=== PATIENT | male | born 1945 | race African-American/Black ===

== ENCOUNTER 2018-06-10 18:58 | Inpatient (IN) | payer MEDICARE, MEDICAID ==
[~2018-06-10] VITALS: Ht 180.3 cm; Wt 98.2 kg
--- NOTE | ~2018-06-10 | DS ---
PATIENT:WINIFRED YU :49 MEDICAL RECORD: [id number] DISCHARGE SUMMARY ADMISSION DATE: 06/10/18 DISCHARGE DATE: 06/16/18 HOSPITAL COURSE: Mr. Yu is a 72-year-old -British male from [facility] who over the course of the last 6 months has had his lithium decreased on pharmacy recommendation. He became, in the weeks leading up to admission, gradually more agitated. They reinstated the lithium and had, by report, given him a few doses of Haldol as well. During his stay here, he was initially agitated the first 24 hours, but after which he became more compliant, less aggressive. He always seemed to need help with feeding, and on the day of discharge the patient had become very rigid. He would not eat and seemed to in particular have a stiff neck. I discussed the case with Dr. Mccarthy, and after her consulting neurology, despite the fact that the patient is not on a regular antipsychotic, the case for neuroleptic malignant syndrome was made. He had a slight fever. He does have rigidity, although not lead pipe and had an elevated CPK that was not consistent with heart disease. Decision was made to transfer the patient for ICU with a rule out of possible neuroleptic malignant syndrome. ASSESSMENT: Major neurocognitive disorder with behavioral disturbances, Alzheimer's type, bipolar affective disorder, manic phase, resolved, communication disorder, dysarthria and rule out neuroleptic malignant syndrome. PLAN: Transfer to the ER. His meds, except for metoprolol and clonidine, will be discontinued in order to address the diagnosis of neuroleptic malignant syndrome. Case discussed with nursing. Chart was reviewed and the patient interviewed and examined. TRANSINT:[id number] Voice Confirmation ID: [id number] DOCUMENT ID: [id number] ERNIE ADAM MD CC: [id number] DICTATION DATE: 06/11/18 1250 TRAINING ENGINEER: 06/12/18 0629 DIS IN 06/16/[id number] [place] [address]
--- NOTE | ~2018-06-10 | CN ---
PATIENT NAME:WINIFRED YU MEDICAL RECORD: [id number] : 49 LOCATION:[id number] ADMIT DATE: 06/10/18 ACCOUNT: [id number] CONSULTING PHYSICIAN: JAMEEL SOLANO MD REFERRING PHYSICIAN: TAMRA MCKEON MD DATE OF CONSULTATION: 06/11/2018 CONSULT REQUESTING PHYSICIAN: Tamra Mckeon MD REASON FOR CONSULTATION: Critical care management, questionable neuroleptic syndrome, hypernatremia, and hypokalemia. HISTORY OF PRESENT ILLNESS: Mr. Yu is a 72-year-old gentleman who is a [facility] resident, recently they were playing with his lithium and the patient was brought into the hospital with mental status changes. He also got p.o. Haldol and the patient was admitted to the ICU, possible neuroleptic syndrome and serotonin withdrawal syndrome. Now, the patient is lying comfortably. He is not in acute distress. The patient is awake and alert, but he is not communicative. REVIEW OF SYSTEMS: The detail is not obtainable as in history of present illness. PAST MEDICAL HISTORY: 1. Dementia. 2. Dysphagia. 3. Hyperlipidemia. 4. Gait abnormality. 5. Bipolar disorder. 6. Schizophrenia. ALLERGIES: No known drug allergy. MEDICATIONS: He is on lithium, hydrocodone, oxybutynin, Pravachol. PERSONAL AND SOCIAL HISTORY: The smoking history unknown. FAMILY HISTORY: Unknown. PHYSICAL EXAMINATION: GENERAL: Now, the patient is lying comfortably in bed. He is not in acute distress. VITAL SIGNS: The blood pressure is 133-151 by 96. Temperature 98.1. The T-max is 99, SpO2 is 96% on room air. Heart rate is 84-106. HEENT: Conjunctivae are pink. Sclerae are not icteric. NECK: Supple, no JVD. CHEST: The chest excursion is minimal on both sides. There is no wheeze, no rales. HEART: Rhythm regular, normal sound, no murmur. ABDOMEN: Soft, bowel sounds present. No hepatosplenomegaly. RECTAL: Deferred. EXTREMITIES: No cyanosis, no clubbing, no pedal edema. CENTRAL NERVOUS SYSTEM: The patient is awake, but he is noncommunicative. There is no muscle rigidity. CONSULT REPORT [id number] WINIFRED YU LABORATORY DATA: CBC: The WBC is 9.9, hemoglobin 13.2, hematocrit 42.3, the platelet count 115. Chemistry: Sodium 148, potassium 3.1, BUN is 18, creatinine 0.8. Glucose 132. Liver enzymes within normal range. Albumin is 3.3. Chest radiograph was clear. IMPRESSION: 1. Mental status changes. It would be less likely a neuroleptic syndrome without muscle rigidity without a fever. 2. Hypernatremia, possible dehydration. 3. Hypokalemia. 4. Hypertension. 5. Bipolar affective disorder with schizophrenia. RECOMMENDATION: 1. Continue with the IV fluid. 2. Check the CPK, lactic acid level, LDH. FOLLOWUP: 1. Follow up the vital signs and fever. 2. I will consult psych. 3. Follow up labs and chest radiograph. Dr. Mckeon, thank you for involving me in the care of Mr. Yu. TRANSINT:[id number] Voice Confirmation ID: [id number] DOCUMENT ID: [id number] JAMEEL SOLANO MD CC: [id number] DICTATION DATE: 06/11/18 1203 DIGITAL RESEARCH ANALYST: 06/11/18 1303 ADM IN [facility] [address] [id number]
[~2018-06-10 18:58] MED LIST: HYDROCODON-ACE1 EA10 PO; LITHIUM CARBON150 MG PO; METAMUCIL PACKE1 PKT PO; OXYBUTYNIN CHLOR5 M1 PO; PRAVACHOL20 MG
[2018-06-10 20:00] VITALS: BP 111/97
--- NOTE | 2018-06-10 20:00 | NUR ---
RECEIVED PT TO ICU ROOM 2304 FROM [facility] TRANSFERRED TO ICU BED PT EYES OPEN HE IS NONVERBAL DOES NOT FOLLOW COMMANDS DOES WITHDRAW FROM PAIN. DOYLE PLACED ON CM ALARMS ON AND AUDIBLE READING SR-ST WITHOUT ECTOPY PT IS HYPERTENSIVE PER REPORT. NO IV ACCESS PER REPORT ATTEMPTS MADE NOT SUCCESSFUL. RESP EVEN AND NONLABORED BREATH SOUNDS CLEAR ON ROOM AIR WITH O2 SATS 99%. SKIN WARM AND DRY INTACT. PT DOES HAVE TRACE EDEMA TO BLE. PPP. PT HAS ADULT DIAPER ON SATURATED WITH DARK URINE PLACED RENE. BED LOW POSITION WITH SIDE RAILS UP TIMES 3. CALL LIGHT IN REACH.
--- NOTE | 2018-06-10 20:15 | NUR ---
PLACING ARM BAND ON PT AND HE APPEARS TO FOLLOW NURSE WITH EYES. WHEN ASKED IF HE KNEW WHERE HE WAS HE NODDED HEAD NO, REORIENTED PT DID FOLLOW COMMANDS WHERE HE DID NOT PREVIOUSLY
--- NOTE | 2018-06-10 20:45 | NUR ---
CALLED DR MCKEON INFORMED PT ARRIVED TO UNIT INFORMED THAT HE WAS NONVERBAL AND DID NOT FOLLOW COMMANDS BUT WITHIN 40 MINUTES DID NOD HEAD APPROPRIATELY AND FOLLOWED COMMANDS WELL SAID NO WHEN ASKED IF HE WAS ALLERGIC TO ANYTHING. HE DID ALSO JUST VERBALIZE HIS BIRTHDATE CORRECTLY. SHE ORDERED CT OF HEAD
[2018-06-10 21:00] VITALS: BP 156/106
[2018-06-10 22:00] VITALS: BP 163/103
--- NOTE | 2018-06-10 22:00 | NUR ---
20 GUAGE PIV TO LEFT FOREARM PER STEVEN MONTANEZ
--- NOTE | 2018-06-10 22:36 | NUR ---
PT TRANSPORTED TO CT FOR CT OF HEAD VIA BED WITH NURSE AND GROUP DIRECTOR.
--- NOTE | 2018-06-10 22:48 | NUR ---
BACK FROM CT TOLERATED WELL
[2018-06-10 23:00] VITALS: BP 163/103
[2018-06-10 23:24] VITALS: BP 118/96
[2018-06-11] VITALS (22 sets, daily range): BP systolic 133–182; BP diastolic 83–110; Ht 180.3 cm; Wt 98.2 kg
--- NOTE | 2018-06-11 01:00 | NUR ---
PT HAD SMALL SEMISOFT BROWN STOOL PARTIAL BED BATH AND LINEN CHANGE DONE SKIN INTACT
--- NOTE | 2018-06-11 03:00 | NUR ---
REASSESSMENT MADE PT RESTING QUIETLY WITH EYES CLOSED AWAKENS EASILY TO VERBAL STIMULI FOLLOWS COMMANDS LEFT SIDED WEAKNESS NOTED. NO DISTRESS NOTED VSS AT THIS TIME
[2018-06-11 06:16] LABS: ALBUMIN 3.3 g/dL (3.4-5.0); ALKALINE PHOSPHATASE 57 U/L (46-116); BILIRUBIN - TOTAL 0.94 mg/dL (0.2-1.3); CALC OSMOLALITY 297 mosm/kg (275-300); CALCIUM 8.9 mg/dL (8.5-10.1); CARBON DIOXIDE 26.6 mmol/L (21.0-32.0); CHLORIDE - SERUM 109 mmol/L (98-107); GLUCOSE 132 mg/dL (74-106); POTASSIUM - SERUM 3.1 mmol/L (3.5-5.1); PROTEIN - SERUM 6.9 g/dL (6.4-8.2); SODIUM 148 mmol/L (136-145); UREA NITROGEN 18 mg/dL (7-18)
[2018-06-11 06:18] LABS: ALT (SGPT) 39 U/L (10-68); CREATININE - SERUM 0.8 mg/dL (0.6-1.3); eGFR NON AFRICAN AMERICAN > 90 mL/min (90-120)
--- NOTE | 2018-06-11 07:00 | NUR ---
RECEIVED PATIENT FROM NURSE. DURING ASSESSMENT PATIENT FOLLOWED ME WITH EYES BUT WOULD NOT VERBALLY RESPOND TO ANY QUESTIONS. ONLY COMMAND FOLLOWED WAS TO RAISING ARMS. ABLE TO PASSIVELY BEND ARMS AND LEGS AT JOINTS BUT PATIENT DOES SEEM RIGID OTHERWISE IN THAT HE HE TRIES TO RESIST BENDING AT JOINTS. ABLE PUSH LEGS AND FEET AGAINST MY HANDS ONLY IN EFFORT TO RESIST, NOT BY COMMAND. PUPILS EQUAL AND REACTIVE. LUNG FIEDLS CLEAR, VSS. ABDOMEN VERY DISTENDED AND BOWEL SOUNDS HYPOACTIVE.
[2018-06-11 07:37] LABS: BASOPHILS 0.1 % (0-2); EOSINOPHILS 0.8 % (0-7); HEMATOCRIT 42.3 % (42.0-54.0); HEMOGLOBIN 13.2 g/dL (13.5-17.5); IMMATURE GRANULOCYTES 0.1 % (0-5); LYMPHOCYTES 21.1 % (15-50); MCH 28.4 pg (26.0-34.0); MCHC 31.2 g/dL (31.0-37.0); MEAN PLATELET VOLUME 10.9 fL (7.4-10.4); MONOCYTES 9.6 % (2-11); NEUTROPHILS 68.3 % (40-80); PLATELET COUNT 115 10x3/uL (130-400); RBC 4.65 10x6/uL (4.20-6.10); RDW 14.3 % (11.5-14.5); WBC 9.9 10x3/uL (4.8-10.8)
--- NOTE | 2018-06-11 09:30 | NUR ---
CALLED DR. MCKEON BACK ABOUT CT OF HEAD ORDER SINCE IT WAS DONE LAST NIGHT. HARD COPY RESULTS IN CHART FOR SOME REASON... READ BACK RESULTS. OKAY TO CANCEL NEW ORDER.
--- NOTE | 2018-06-11 11:33 | NUR ---
PT RESTING IN BED WITH STABLE VS. NO COMPLAINTS
--- NOTE | 2018-06-11 12:58 | NUR ---
PLACED RENE. CHANGED ALL PATIENT LINENS AND GAVE BED BATH. HAD SMALL LOOSE BM
--- NOTE | 2018-06-11 13:07 | NUR ---
FAXED CONSULT FOR DR. ADAM DOWN TO ASSISTED AND PLACED VERIFICATION RECEIPT IN CHART
--- NOTE | 2018-06-11 14:26 | NUR ---
CHANGED DRESSING TO LEFT LEG VENOUS STASIS ULCER ACCORDING TO ORDERS. WOUND HAS ONLY SMALL SKIN TEAR OPENING AND HARDLY DRAINING. SKIN IS MOTTLED AND BRUISED. APPLIED SCD'S, FLOATED HEELS, AND TURNED TO RIGHT SIDE. FAMILY IN ROOM
[2018-06-11 14:48] LABS: LDH 267 U/L (85-227)
[2018-06-11 14:50] LABS: CREATINE KINASE 415 UL (21-232)
--- NOTE | 2018-06-11 15:00 | NUR ---
DR. ADAM CAME BY TO EVALUATE PATIENT. WANTS TO LEAVE IN ICU TILL NMP SYMPTOMS SUBSIDE. NO ORDERS GIVEN
[2018-06-11 15:13] LABS: CKMB 2.4 U/L (0.0-3.6)
--- NOTE | 2018-06-11 19:00 | NUR ---
ASSESSMENT COMPLETE PT ALERT FOLLOWS COMMANDS LEFT SIDED WEAKNESS FROM PREVIOUS STROKE. DENIES PAIN STATES YES WHEN ASKED IF HE NEEDED TO CHANGE POSITION IN BED FOR COMFORT. USING WEDGE PILLOWS PT ABLE TO ASSIST MINIMALLY WITH REPOSITIONING WHILE TURNING TO ASSESS BOTTOM NOTICED PT HAD MODERATE SIZE SEMISOFT LIGHT BROWN STOOL COMPLETE LINEN CHANGE AND PARTIAL BED BATH. SKIN INTACT RESP EVEN NONLABORED O2 SAT 98%ON ROOM AIR BREATH SOUNDS CLEAR. CM ALARMS ON AND AUDIBLE PT IN SR NO ECTOPY. SKIN WARM AND DRY PPP. ABD SOFT NONTENDER.
--- NOTE | 2018-06-11 23:00 | NUR ---
REASSESSMENT MADE PT DENIES PAIN REPOSITIONED FOR COMFORT. VSS AT THIS TIME
[2018-06-12] VITALS (24 sets, daily range): BP systolic 132–180; BP diastolic 79–116
--- NOTE | 2018-06-12 01:48 | NUR ---
B/P ELEVATED MEDICATED WITH LOPRESSOR IV PER PRN ORDER
--- NOTE | 2018-06-12 02:32 | NUR ---
NOTICED PT TIGHTLY HOLDING HANDS IN FISTS AND ARMS STRAIGHT. PT IS TALKING AND STATES HIS NAME JUST A LITTLE CONFUSED ABOUT TIME. ATIVAN 1 MG GIVEN SIVP PER PRN ORDER FOR NEUROLEPTIC MALIGNANT SYMPTOMS SUCH THE RIGIDITY.
--- NOTE | 2018-06-12 03:00 | NUR ---
REASSESSMENT MADE PT RESTING QUIETLY AND MUSCLES RELAXED FROM ATIVAN GIVEN PRN AND BLOOD PRESSURE HAS COME DOWN SOME WITH PRN LOPRESSOR.
--- NOTE | 2018-06-12 07:00 | NUR ---
SHIFT ASSESSMENT COMPLETED. PT CARE ASSUMED, MONITORS ON AND WORKING, VITALS STABLE, NO SIGNS/SYMPTOMS OF PAIN OR DISCOMFORT NOTED. SEE FLOW SHEET FOR FURTHER DETAILS. WILL CONTINUE TO OBSERVE.
--- NOTE | 2018-06-12 07:07 | NUR ---
LAB HAS NOT BEEN ABLE TO GET BLOOD FOR AM LABS PT IS A DIFFICULT STICK. ANOTHER EXPEDITER SERVICE ORDER COMING TO ATTEMPT SHORTLY
[2018-06-12 08:15] LABS: ALBUMIN 2.8 g/dL (3.4-5.0); ALKALINE PHOSPHATASE 61 U/L (46-116); ALT (SGPT) 30 U/L (10-68); BILIRUBIN - TOTAL 0.72 mg/dL (0.2-1.3); CALC OSMOLALITY 285 mosm/kg (275-300); CALCIUM 8.4 mg/dL (8.5-10.1); CARBON DIOXIDE 27.7 mmol/L (21.0-32.0); CHLORIDE - SERUM 109 mmol/L (98-107); CREATININE - SERUM 0.9 mg/dL (0.6-1.3); GLUCOSE 115 mg/dL (74-106); PROTEIN - SERUM 6.5 g/dL (6.4-8.2); SODIUM 144 mmol/L (136-145); eGFR NON AFRICAN AMERICAN 89 mL/min (90-120)
[2018-06-12 08:22] LABS: UREA NITROGEN 8 mg/dL (7-18)
[2018-06-12 08:24] LABS: HEMATOCRIT 38.6 % (42.0-54.0); HEMOGLOBIN 12.3 g/dL (13.5-17.5); MCH 28.5 pg (26.0-34.0); MCV 89.4 fL (80.0-100.0); RBC 4.32 10x6/uL (4.20-6.10); WBC 7.9 10x3/uL (4.8-10.8)
[2018-06-12 08:25] LABS: LYMPHOCYTES 34.9 % (15-50); MCHC 31.9 g/dL (31.0-37.0); MEAN PLATELET VOLUME 10.5 fL (7.4-10.4); MONOCYTES 8.1 % (2-11); NEUTROPHILS 54.6 % (40-80); PLATELET COUNT 113 10x3/uL (130-400); RDW 13.7 % (11.5-14.5)
[2018-06-12 08:26] LABS: BASOPHILS 0.1 % (0-2); IMMATURE GRANULOCYTES 0.3 % (0-5)
--- NOTE | 2018-06-12 09:00 | NUR ---
REPORT RECEIVED FROM HAYLEY MONTANEZ PATIENT AWAKES EASILY, BUT NOT MAKE SENSE TALKING. CONFUSED REORIENTED WAS NOT EFFECTIVE. IV LEFT FOREARM WITHOUT REDNESS OR SWELLING. D51/4 NS AT 100 ML HOUR. VOIDING CLEAR YELLOW URINE. MOD SIZE BROWN FORMED STOOL
--- NOTE | 2018-06-12 10:00 | NUR ---
LOPRESSOR GIVEN FOR HEART RATE 120 WITH ELEVATED BLOOD PRESSURE. MEDS EFFECTIVE HEART RATE DOWN TO 86
--- NOTE | 2018-06-12 11:07 | NUR ---
LARGE BROWN STOOL, SHENA LIKE CONSISTENCE. PERINEAL CARE DONE AND RENE CATH CARE DONE.KCL RIDERS INFUSING. REPOSITIONED TOLERATED WELL. STILL CONFUSED. SEEING GREEN EYES
--- NOTE | 2018-06-12 13:30 | NUR ---
DR. DEL REAL HERE UPDATE GIVEN, DIET ORDERED.
--- NOTE | 2018-06-12 15:17 | NUR ---
REPOSITIONED ON RIGHT SIDE, ASKED PATIENT TO TURN HIMSELF HE TRIES TO MOVE THAT WAY BUT DOES NOT MAKE IT. HAD TO TO BE TURNED TO HIS SIDE. IN GOOD MOOD, TALKING CONSTANTLY REPEATS WHAT NURSE SAYS, THEN TALKS ABOUT VARIOUS SUBJECTS. RENE CATH PATENT. IV LEFT FOREARM WITHOUT REDNESS OR SWELLING. MONITOR SR. MOVES ALL EXTEMITIES,NO DISTRESS.
--- NOTE | 2018-06-12 16:04 | NUR ---
LOPRESSOR GIVEN FOR SYS BP GREATER THAN 180 SLOWLY. PATIENT SINGING HYMNS SPEECH STILL CLEAR, JUST CONTINOUSLY TALKING ABOUT SOMETHING IN MY POCKET, CUTTING BRACELETS OFF, ASKED HIM TO WAIT UNTIL TOMORROW, STATES OK.
--- NOTE | 2018-06-12 18:32 | NUR ---
PATIENT OVERLY EXCITED ABOUT TV. ATIVAN 1 MG IV GIVEN. 40 MEQ PO POTASSIUM GIVEN FOR SERUM POTASSIUM OF 3.4. MEDS CRUSHED AND PUT IN VANILLA PUDDING. TAKING PO SLOWLY WITHOUT CHOKING. ONLY TAKE VERY SMALL BITES. RENE CATH PATENT DRAINING CLEAR JERMAN URINE. IV LEFT FOREARM WITHOUT REDNESS OR SWELLING. INFUSING WITH D51/4NS AT 100 ML HOUR. TALKING REPEATING ALOT OF WHAT THE TV IS SAY, ABLE TO READ WHAT CHANNEL THE TV IS ON. HEART RATE AND BLOOD PRESSURE IS UP, PATIENT VERY EXCITED ABOUT TV.
--- NOTE | 2018-06-12 19:00 | NUR ---
PT SITTING UP IN BED WATHCING TV ALERT. SMILES AND FOLLOWS COMMANDS. ABLE TO STATE HIS NAME AND AND SAYS HE KNOWS WHERE HE IS BUT WILL NOT VERBALIZE JUST SHAKES HEAD AND SMILES. RESP EVEN AND NONLABORED BREATH SOUNDS CLEAR CM ON READING SR ALARMS ON AN AUDIBLE. SKIN W/D PPP TRACE EDEMA TO BLE. LEFT AC PIV WITH IV FLUIDS INFUSING WITHOUT DIFFICULTY. DENIES PAIN OR DISCOMFORT BY SHAKING OF HEAD. BED LOW POSITION CALL LIGHT IN REACH AND EDUCATED ON HOW TO USE CALL LIGHT
[2018-06-13] VITALS (21 sets, daily range): BP systolic 97–198; BP diastolic 71–123
--- NOTE | 2018-06-13 00:25 | NUR ---
PT CONTINUES TO BE HYPERTENSIVE LOPRESSOR GIVEN PER PRN ORDERS PT SITTING UP IN BED BOTH ARMS RIGID WHEN ASKED IF ARMS WERE HURTING HE NODS HEAD YES MEDICATED WITH ATIVAN PRN WHICH MAY ALSO HELP LOWER BP WILL MONITOR
[2018-06-13 03:47] LABS: HEMATOCRIT 38.2 % (42.0-54.0); HEMOGLOBIN 12.1 g/dL (13.5-17.5); MCH 28.7 pg (26.0-34.0); MCHC 31.7 g/dL (31.0-37.0); MCV 90.5 fL (80.0-100.0); MEAN PLATELET VOLUME 11.2 fL (7.4-10.4); PLATELET COUNT 122 10x3/uL (130-400); RBC 4.22 10x6/uL (4.20-6.10); RDW 13.9 % (11.5-14.5); WBC 6.6 10x3/uL (4.8-10.8)
[2018-06-13 04:08] LABS: ALBUMIN 2.7 g/dL (3.4-5.0); ALKALINE PHOSPHATASE 61 U/L (46-116); ALT (SGPT) 36 U/L (10-68); BILIRUBIN - TOTAL 0.58 mg/dL (0.2-1.3); CALC OSMOLALITY 285 mosm/kg (275-300); CALCIUM 8.5 mg/dL (8.5-10.1); CHLORIDE - SERUM 108 mmol/L (98-107); CREATINE KINASE 203 UL (21-232); CREATININE - SERUM 0.9 mg/dL (0.6-1.3); GLUCOSE 111 mg/dL (74-106); POTASSIUM - SERUM 3.3 mmol/L (3.5-5.1); PROTEIN - SERUM 6.6 g/dL (6.4-8.2); SODIUM 144 mmol/L (136-145); UREA NITROGEN 6 mg/dL (7-18); eGFR NON AFRICAN AMERICAN 89 mL/min (90-120)
[2018-06-13 04:29] LABS: LYMPHOCYTES 31 % (15-50); MONOCYTES 11 % (2-11); NEUTROPHILS 58 % (40-80); PLATELET ESTIMATE NORMAL
--- NOTE | 2018-06-13 08:06 | NUR ---
BREAFAST TRAY SERVED AND PT REQUIRES FEEDING. BP 163/106. LOPRESSOR GIVEN. K 3.3 POTASSIUM REPLACEMENT PER ELECTROLYTE PROTOCOL UTILIZED.
--- NOTE | 2018-06-13 08:35 | NUR ---
RESITE IV R WRIST.
--- NOTE | 2018-06-13 09:27 | NUR ---
Nutrition follow-up: Diet just advanced the regular mechanical soft Pt is a feeder due to confusion Labs reviewed Wt: 216# RDN following.
--- NOTE | 2018-06-13 12:36 | NUR ---
BATH AND LINEN CHANGE COMPLETE. PT CHARISMA WELL. PT IS TOTAL CARE. DOES NOT FOLLOW COMMAND BUT INSTEAD TALKS CONTINOUSLY. NO COMBATIVE BEHAVIOR NOTED. CONTINUES TO HAVE WORD SALAD.
--- NOTE | 2018-06-13 13:25 | NUR ---
DR DEL REAL HERE. DISCUSSED PTS HYPERTENTION. LISINOPRIL STARTED AND ATIVAN GIVEN ORDERED FOR RIGIDITY.
--- NOTE | 2018-06-13 17:33 | MORECARE ---
CASE MANAGEMENT DISCHARGE SUMMARY PATIENT: WINIFRED RIVERA UNIT: [id number] ADM DATE: 06/10/18 AGE: 72 : 47 SEX: M ROOM/BED: D.2304 AUTHOR: DAVID YIN PHYSICIAN: REFERRING PHYSICIAN: TANIYA MCKEON MD DATE OF SERVICE: 06/13/18 Discharge Plan Patient Name: WINIFRED RIVERA [facility] [facility] 1945 Planned Disposition: Care Home Facility Anticipated Discharge Date: Discharge Date: Expected LOS: Initial Reviewer: [email or web address] Initial Review Date: 06/13/2018 Generated: 06/13/18 6:33 pm Patient Name: WINIFRED RIVERA Page [phone] at 1733 All edits/amendments must be made on the electronic document DICTATION DATE: 06/13/181731 BABY SITTER: DEVIN 06/13/181731 RPT#: [id number] ND DATE: STATUS: ADM IN [facility] [address] [place] [address] END OF REPORT
--- NOTE | 2018-06-13 17:43 | MORECARE ---
CASE MANAGEMENT DISCHARGE SUMMARY PATIENT: WINIFRED RIVERA UNIT: [id number] ADM DATE: 06/10/18 AGE: 72 : 47 SEX: M ROOM/BED: D.2304 AUTHOR: HUMPHREY,DOC PHYSICIAN: REFERRING PHYSICIAN: TANIYA MCKEON MD DATE OF SERVICE: 06/13/18 Discharge Plan Patient Name: WINIFRED RIVERA Facility: [facility]:[place] : 1945 Planned Disposition: Longterm Facility Anticipated Discharge Date: Discharge Date: Expected LOS: Initial Reviewer: [email or web address] Initial Review Date: 06/13/2018 Generated: 06/13/18 6:43 pm Comments DCP- Discharge Planning Updated by [email or web address]: Karely Carey on 06/13/18 4:[address] Patient Name: WINIFRED RIVERA Admission Status: Elective Accout number: [id number] Admission Date: 06-10-2018 : 1945 Admission Diagnosis: Attending: TANIYA MCKEON Current LOS: 3 Anticipated DC Date: Planned Disposition: Longterm Facility Primary Insurance: [facility] MEDICARE HMO or PPO Discharge Planning Comments: CM met with patient at bedside. Patient is alert and oriented X1 . Patient did state that he plans on returning to [facility] upon discharge. Patient could tell me his sister's name. Sheri Mo [phone]. Patient denies any discharge needs currently. CM will continue to follow and assist as needed with discharge planning / needs. Low Pressure Boiler Operator: Karely Carey DCPIA - Discharge Planning Initial Assessment Updated by [email or web address]: Karely Carey on 06/13/18 5:34 pm * Is the patient Alert and Oriented? No * PCP Shari * Pharmacy [facility] * Preadmission Environment Memory Care * Other Environment Patient was admitted from [facility] inpatient Psych Unit * Facility Name [facility] * ADLs Partial Dependent * Partial ADLs (Assistance needed) Ambulation Bathing Dressing Eating Medication Management Toileting Transfers * List name and contact numbers for known caregivers / representatives who currently or will assist patient after discharge: Sheri Mo - Sister - [phone] * Verbal permission to speak to the caregivers and representatives has been obtained from the patient. Yes * Community resources currently utilized None * Additional services required to return to the preadmission environment? No * Can the patient safely return to the preadmission environment? Yes * Has this patient been hospitalized within the prior 30 days at any hospital? No Last DP export: 06/13/18 4:33 p Patient Name: WINIFRED RIVERA Page [phone] at 1743 All edits/amendments must be made on the electronic document DICTATION DATE: 06/13/181741 KILN STOKER: DEVIN 06/13/181741 RPT#: [id number] DC DATE: STATUS: ADM IN [facility] [address] [place] [address] END OF REPORT
--- NOTE | 2018-06-13 23:53 | NUR ---
PT RESTING COMFORTABLY IN BED WITH NO S/S OF ACUTE DISTRESS, WAKES WITH MINIMAL STIMULI, VSS, REPOSITIONED FOR COMFORT, PT DENIES PAIN AT THIS TIME, WILL CONTINUE TO MONITOR
[2018-06-14 05:01] LABS: BASOPHILS 0.1 % (0-2); EOSINOPHILS 2.3 % (0-7); HEMATOCRIT 37.2 % (42.0-54.0); HEMOGLOBIN 11.5 g/dL (13.5-17.5); IMMATURE GRANULOCYTES 0.1 % (0-5); LYMPHOCYTES 33.2 % (15-50); MCH 27.8 pg (26.0-34.0); MCHC 30.9 g/dL (31.0-37.0); MCV 90.1 fL (80.0-100.0); MEAN PLATELET VOLUME 11.2 fL (7.4-10.4); MONOCYTES 7.7 % (2-11); NEUTROPHILS 56.6 % (40-80); PLATELET COUNT 127 10x3/uL (130-400); RBC 4.13 10x6/uL (4.20-6.10); RDW 13.7 % (11.5-14.5); WBC 6.9 10x3/uL (4.8-10.8)
[2018-06-14 05:34] LABS: ALBUMIN 2.6 g/dL (3.4-5.0); ALKALINE PHOSPHATASE 54 U/L (46-116); ALT (SGPT) 44 U/L (10-68); CALC OSMOLALITY 285 mosm/kg (275-300); CALCIUM 8.3 mg/dL (8.5-10.1); CARBON DIOXIDE 26.7 mmol/L (21.0-32.0); CHLORIDE - SERUM 109 mmol/L (98-107); CREATININE - SERUM 0.8 mg/dL (0.6-1.3); GLUCOSE 114 mg/dL (74-106); POTASSIUM - SERUM 3.3 mmol/L (3.5-5.1); PROTEIN - SERUM 6.2 g/dL (6.4-8.2); SODIUM 144 mmol/L (136-145); UREA NITROGEN 7 mg/dL (7-18); eGFR NON AFRICAN AMERICAN > 90 mL/min (90-120)
--- NOTE | 2018-06-14 06:47 | CN ---
PATIENT NAME:WINIFRED RIVERA MEDICAL RECORD: [id number] : 49 LOCATION:DONGD.[id number] ADMIT DATE: 06/10/18 ACCOUNT: [id number] CONSULTING PHYSICIAN: GEORGE HAND MD REFERRING PHYSICIAN: TANIYA MCKEON MD DATE OF CONSULTATION: 06/13/2018 IDENTIFYING DATA: The patient is 72 years old and known to me from previous clinical contact. CHIEF COMPLAINT: Medication reaction. HISTORY OF PRESENT ILLNESS: Apparently, the patient had some stiffness and increased CPK and fever that was felt to be associated with exposure to a neuroleptic. He was subsequently transferred to ICU. The patient is now afebrile, has normal lab and the stiffness is either resolved or mostly resolved. He continues to be very poorly oriented and at times agitated. ASSESSMENT: 1. Bipolar disorder. 2. Dementia. PLAN: The patient should be returned to the behavioral unit at your convenience. There is a bed shortage right now, but I am willing to accept him whenever internal medicine feels that he is medically stable. I do not see evidence of any condition medically that would prevent him from returning to the behavioral unit and being treated here. I am willing to accept him back whenever he is deemed medically stable. TRANSINT:[id number] Voice Confirmation ID: [id number] DOCUMENT ID: [id number] GEORGE HAND MD at 0647 CC: [id number] DICTATION DATE: 06/13/181810 CLERICAL SECRETARY: 06/13/182031 ADM IN [id number] [place] [address]
[2018-06-14 07:00] VITALS: BP 149/89
--- NOTE | 2018-06-14 08:23 | NUR ---
UP IN BED WATCHING TV AT THIS TIME. OFFERED PT BREAKFAST, HE STATED HE DID NOT WANT ANYTHING. WAS ABLE TO GET PT TO DRINK SOME OF HIS ORANGE JUICE. PT IS A FEEDER WITH MEALS. NO ACUTE DISTRESS NOTED. WILL CONTINUE PLAN OF CARE.
--- NOTE | 2018-06-14 10:22 | NUR ---
UP IN BED WATCHING TV. DENIES ANY NEEDS. WILL CONTINUE PLAN OF CARE.
[2018-06-14 11:00] VITALS: BP 155/102
--- NOTE | 2018-06-14 12:15 | NUR ---
UP IN BED WATCHING TV AT THIS TIME. DENIES ANY NEEDS. PT IS A FEEDER WITH MEALS. TURNED Q2H. ORAL CARE OFFERED Q2H. WILL CONTINUE PLAN OF CARE.
[2018-06-14 15:00] VITALS: BP 146/100
--- NOTE | 2018-06-14 16:06 | NUR ---
BED BATH GIVEN AT THIS TIME. TOTAL LINEN CHANGE AND RENE CARE PROVIDED. NO ACUTE DISTRESS NOTED. WILL CONTINUE PLAN OF CARE.
--- NOTE | 2018-06-14 16:13 | NUR ---
REPORT CALLED TO RECIEVING NURSE FOR PT TO TRANSFER TO ROOM 2220. WILL TRANSFER PT SHORTLY.
--- NOTE | 2018-06-14 16:28 | NUR ---
TRANSFERRED TO ROOM 2220 AT THIS TIME VIA BED ACCOMPANIED BY HOSPITAL STAFF WITH ALL PERSONAL ITEMS. NO ACUTE DISTRESS NOTED. NO FURTHER ACTIONS.
--- NOTE | 2018-06-14 20:00 | NUR ---
ASSESSMENT PER FLOWSHEET. SALINE LOCK PATENT RT FOREARM NO IV FLUIDS ARE HANGING. 1000CC'S NS W/20MEQ KCL HUNG PER ORDERS TO RUN AT 100CC'S/HR. HOB UP FED PATIENT HIS SUPPER WHICH WAS LEFT UNTOUCHED AT BEDSIDE. ATE 85%. MAHESH BED MAT IN USE WITH ALARMS SET RENE TO BEDSIDE DRAINAGE WITH YELLOW URINE.
[2018-06-14 20:54] VITALS: BP 158/99
--- NOTE | 2018-06-14 22:00 | NUR ---
REMAINS AWAKE AND WATCHING TV.
--- NOTE | 2018-06-15 | NUR ---
EYES CLOSED RESPIRATIONS WITH EASE AND UNLABORED. SR UP X2 CALL LIGHT WITHIN REACH.
[2018-06-15 00:54] VITALS: BP 148/98
--- NOTE | 2018-06-15 03:00 | NUR ---
RESTING QUIETLY DENIES NEEDS.
--- NOTE | 2018-06-15 04:48 | NUR ---
EYES CLOSED RESPIRATIONS WITH EASE AND UNLABORED.
[2018-06-15 05:01] VITALS: BP 174/97
[2018-06-15 05:31] LABS: BASOPHILS 0.2 % (0-2); EOSINOPHILS 1.1 % (0-7); HEMOGLOBIN 12.7 g/dL (13.5-17.5); IMMATURE GRANULOCYTES 0.2 % (0-5); LYMPHOCYTES 29.4 % (15-50); MCH 28.5 pg (26.0-34.0); MCHC 31.8 g/dL (31.0-37.0); MCV 89.9 fL (80.0-100.0); MONOCYTES 7.7 % (2-11); NEUTROPHILS 61.4 % (40-80); PLATELET COUNT 140 10x3/uL (130-400); RBC 4.45 10x6/uL (4.20-6.10); RDW 13.6 % (11.5-14.5); WBC 6.5 10x3/uL (4.8-10.8)
[2018-06-15 06:06] LABS: ALBUMIN 2.9 g/dL (3.4-5.0); ALKALINE PHOSPHATASE 65 U/L (46-116); ALT (SGPT) 40 U/L (10-68); CALC OSMOLALITY 283 mosm/kg (275-300); CALCIUM 8.4 mg/dL (8.5-10.1); CARBON DIOXIDE 23.7 mmol/L (21.0-32.0); CHLORIDE - SERUM 109 mmol/L (98-107); CREATININE - SERUM 0.8 mg/dL (0.6-1.3); GLUCOSE 97 mg/dL (74-106); POTASSIUM - SERUM 3.8 mmol/L (3.5-5.1); PROTEIN - SERUM 6.8 g/dL (6.4-8.2); SODIUM 143 mmol/L (136-145); eGFR NON AFRICAN AMERICAN > 90 mL/min (90-120)
--- NOTE | 2018-06-15 06:20 | NUR ---
INC SMEAR STOOL. COMPLETE BED BATH WITH LINENS CHANGED.
[2018-06-15 06:27] LABS: UREA NITROGEN 9 mg/dL (7-18)
[2018-06-15 08:18] VITALS: BP 160/104
[2018-06-15 12:19] VITALS: BP 154/97
--- NOTE | 2018-06-15 13:50 | NUR ---
I have reviewed this patient and I concur with the Shift Assessment completed by the Licensed Practical Nurse today this shift.
--- NOTE | 2018-06-15 15:39 | NUR ---
SPOKE TO DR DEL REAL IN REGARDS TO RENE DORIS WAT[facility], PER DR DEL REAL, PT IS VERY STIFF AND UNABLE TO TO USE URINAL AND IS INCONTIONENT. BIGGEST CONCERN WOULD BE SORES FROM BEING WET TOO LONG AND SKIN BREAKDOWN UNLESS PT CAN BE CHANGED NEEDED, ADVISED WE WOULD DO OUR BEST BUT NOT OFTEN WE COULD, DECISION TO LEAVE IN RENE DUE TO SKIN BREAKDOWN
--- NOTE | 2018-06-15 16:47 | NUR ---
OT NOTE: PT COMPLETED BED MOB WITH MAX A AND EXTENSIVE VERBAL CUES . PT COMPLETED EOB SITTING WITH MAX A. PT COMPLETED SELF FEEDING WITH MAX/TOTAL A. THANK YOU, GLENN HAMMOND
[2018-06-15 17:09] VITALS: BP 142/96
--- NOTE | 2018-06-15 20:00 | NUR ---
ASSESSMENT PER FLOWSHEET. IV PATENT RT FOREARM OF NS W/20MEQ KCL INFUSING AT 100CC'S/HR. RENE TO BEDSIDE DRAINAGE WITH JERMAN COLORED URINE. MAHESH BED ALARM MAT IN USE AND ACTIVATED. SCD'S ON. SR UP X2 CALL LIGHT WITHIN REACH.
[2018-06-15 20:10] VITALS: BP 150/105
--- NOTE | 2018-06-15 21:30 | NUR ---
MEDS GIVEN PER MAR.
--- NOTE | 2018-06-16 | NUR ---
REPOSITIONED IN BED SR UP X2 CALL LIGHT WITHIN REACH.
[2018-06-16 01:01] VITALS: BP 132/87
[2018-06-16 04:45] VITALS: BP 146/89
[2018-06-16 05:21] LABS: BASOPHILS 0.1 % (0-2); EOSINOPHILS 1.5 % (0-7); HEMATOCRIT 37.1 % (42.0-54.0); HEMOGLOBIN 11.8 g/dL (13.5-17.5); IMMATURE GRANULOCYTES 0.3 % (0-5); LYMPHOCYTES 27.1 % (15-50); MCH 28.5 pg (26.0-34.0); MCHC 31.8 g/dL (31.0-37.0); MCV 89.6 fL (80.0-100.0); MEAN PLATELET VOLUME 10.7 fL (7.4-10.4); MONOCYTES 7.7 % (2-11); NEUTROPHILS 63.3 % (40-80); PLATELET COUNT 128 10x3/uL (130-400); RBC 4.14 10x6/uL (4.20-6.10); RDW 13.6 % (11.5-14.5); WBC 6.8 10x3/uL (4.8-10.8)
[2018-06-16 05:40] LABS: ALBUMIN 2.6 g/dL (3.4-5.0); ALKALINE PHOSPHATASE 64 U/L (46-116); ALT (SGPT) 42 U/L (10-68); BILIRUBIN - TOTAL 0.64 mg/dL (0.2-1.3); CALC OSMOLALITY 282 mosm/kg (275-300); CALCIUM 8.4 mg/dL (8.5-10.1); CARBON DIOXIDE 25.8 mmol/L (21.0-32.0); CHLORIDE - SERUM 108 mmol/L (98-107); CREATININE - SERUM 0.9 mg/dL (0.6-1.3); GLUCOSE 94 mg/dL (74-106); POTASSIUM - SERUM 3.9 mmol/L (3.5-5.1); PROTEIN - SERUM 6.4 g/dL (6.4-8.2); SODIUM 142 mmol/L (136-145); eGFR NON AFRICAN AMERICAN 89 mL/min (90-120)
[2018-06-16 05:43] LABS: UREA NITROGEN 12 mg/dL (7-18)
--- NOTE | 2018-06-16 08:57 | NUR ---
PT LYING IN BED, NO S/S OF DISTRESS, ASSISTED PT WITH BREAKFAST AND TOOK MORNING MEDS WELL. NO NEEDS VOICED AT THIS TIME, CONTINUE WITH PLAN OF CARE
[2018-06-16 09:23] VITALS: BP 140/96
[2018-06-16] MEDS ORDERED: PROTONIX40 MG PO (09:47)
[2018-06-16] MEDS ORDERED: ATIVAN0.5 MG PO (09:48)
[2018-06-16] MEDS ORDERED: LISINOPRIL40 MG PO (09:48)
[2018-06-16] MEDS ORDERED: ATIVAN IV (09:48)
[2018-06-16] MEDS ORDERED: METOPROLOL TART50 MG PO (09:48)
[2018-06-16] MEDS ORDERED: NORVASC10 MG PO (09:49)
--- NOTE | 2018-06-16 11:10 | MORECARE ---
CASE MANAGEMENT DISCHARGE SUMMARY PATIENT: WINIFRED RIVERA UNIT: [id number] ADM DATE: 06/10/18 AGE: 72 : 47 SEX: M ROOM/BED: D.2220 AUTHOR: HUMPHREY,DOC PHYSICIAN: REFERRING PHYSICIAN: TANIYA MCKEON MD DATE OF SERVICE: 06/16/18 Discharge Plan Patient Name: WINIFRED RIVERA Facility: [facility]:[place] : 1945 Planned Disposition: Jail Facility Anticipated Discharge Date: Discharge Date: Expected LOS: Initial Reviewer: [id number] Initial Review Date: 06/13/2018 Generated: 06/16/18 12:10 pm Comments DCP- Discharge Planning Updated by [email or web address]: Ellie Nolasco on 06/16/18 10:[address] Patient will be discharging to [facility], I called and spoke with his sister Sheri to let her know and she was agreeable to the discharge plan. DCP- Discharge Planning Updated by [id number]: Karely Carey on 06/13/18 4:[address] Patient Name: WINIFRED RIVERA Admission Status: Elective Accout number: [id number] Admission Date: 06-10-2018 : 1945 Admission Diagnosis: Attending: TANIYA MCKEON Current LOS: 3 Anticipated DC Date: Planned Disposition: Jail Facility Primary Insurance: [facility] [facility] or PPO Discharge Planning Comments: CM met with patient at bedside. Patient is alert and oriented X1 . Patient did state that he plans on returning to [facility] upon discharge. Patient could tell me his sister's name. Sheri Mo [phone]. Patient denies any discharge needs currently. CM will continue to follow and assist as needed with discharge planning / needs. Inspector Bicycle: Karely Carey DCPIA - Discharge Planning Initial Assessment Updated by [email or web address]: Karely Carey on 06/13/18 5:34 pm * Is the patient Alert and Oriented? No * PCP Shari * Pharmacy [facility] * Preadmission Environment Memory Care * Other Environment Patient was admitted from [facility] inpatient Psych Unit * Facility Name [facility] * ADLs Partial Dependent * Partial ADLs (Assistance needed) Ambulation Bathing Dressing Eating Medication Management Toileting Transfers * List name and contact numbers for known caregivers / representatives who currently or will assist patient after discharge: Sheri Mo - Sister - [phone] * Verbal permission to speak to the caregivers and representatives has been obtained from the patient. Yes * Community resources currently utilized None * Additional services required to return to the preadmission environment? No * Can the patient safely return to the preadmission environment? Yes * Has this patient been hospitalized within the prior 30 days at any hospital? No Coverage Notice Reviewer: [id number] Chris Nolasco Notice Issued Date-Time: 06/16/2018 11:05 Notice Type: IM Discharge Notice Notice Delivered To: Family Member Relationship to Patient: Sister Motor Grader Operator Name: sheri mo Delivery Method: HAND - Hand Delivered Jen Days: Prior Verbal Notification: Recipient Understood Notice: Yes Recipient Signature: Yes Med Rec Note Co-signed by Attending: Coverage Notice Comment: Last DP export: 06/13/18 4:43 p Patient Name: WINIFRED RIVERA Page [id number] at 1110 All edits/amendments must be made on the electronic document DICTATION DATE: 06/16/18 1110 SOILED LINEN DISTRIBUTOR: DEVIN 06/16/18 1110 RPT#: [id number] DC DATE: STATUS: ADM IN [facility] [address] [place] [address] END OF REPORT
[2018-06-16 12:22] VITALS: BP 145/92
--- NOTE | 2018-06-16 14:28 | NUR ---
PT TRANSFERRED TO [facility]. REPORT GIVEN TO JAY
--- NOTE | 2018-06-16 14:49 | NUR ---
OT NOTE: PT PLEASANTLY CONFUSED. WATCHING OROPEZA IS RIGHT AND ASKING FOR PHONE BECAUSE HE KNEW THE ANSWER TO THE QUESTION. PERFORMED PROM EXS FOR UE; PT UNAABLE TO PERFORM GROOMING OR FEEDING DUE TO B UE STIFFNESS. BED MOB WITH MAX ASSIST. JENA WOOD, OTR/L
--- NOTE | 2018-06-16 15:19 | NUR ---
OT NOTE: PT CONFUSED AND REQUIRED MODERATE VERBAL CUES FOR TASK SEGMENTATION AND COMPLETION OF TASK. PT COMPLETED SIDE ROLLING WITH MIN A. PT COMPLETED UE AROM AXS. PT COMPLETED SIMPLE GROOMING TASK WITH MIN A. THANK YOU, GLENN HAMMOND
== END 2018-06-16 14:29 | DRG 884 ==
LOC: D.ICU 18:58 → D.MS 20:00
PROVIDERS: Internal Medicine Pulmonary Disease; ADMIT Family Medicine; ATTEND Family Medicine
DX: F01.51 Vascular dementia, unspecified severity, with behavioral disturbance (principal); F03.91 Unspecified dementia, unspecified severity, with behavioral disturbance; F31.2 Bipolar disorder, current episode manic severe with psychotic features; E87.0 Hyperosmolality and hypernatremia; E87.6 Hypokalemia; E78.5 Hyperlipidemia, unspecified; E55.9 Vitamin D deficiency, unspecified; F03.90 Unspecified dementia, unspecified severity, without behavioral disturbance, psychotic disturbance, mood disturbance, and anxiety; F20.9 Schizophrenia, unspecified; R32 Unspecified urinary incontinence; R14.0 Abdominal distension (gaseous); I10 Essential (primary) hypertension

== ENCOUNTER 2018-06-16 13:09 | Inpatient (IN) | payer MEDICARE, MEDICAID ==
[~2018-06-16] VITALS: Ht 180.3 cm; Wt 98.7 kg
[~2018-06-16 13:09] MED LIST changes: +ATIVAN IV; +ATIVAN0.5 MG PO; +LISINOPRIL40 MG PO; +METOPROLOL TART50 MG PO; +NORVASC10 MG PO; +PROTONIX40 MG PO
--- NOTE | 2018-06-16 14:30 | NUR ---
THE PATIENT IS FROM THE [facility] FLOOR, HE IS BROUGHT TO US IN THE BED. HE IS SWITCHED OVER TO ONE OF OUR BEDS VIA THE ROMI LIFT. HE IS SMILING AND TALKING HE IS MOVING HIS RIGHT ARM AND LEG. HIS LEFT ARM IS STIFF AND HE IS HOLDING IT CLOSE TO HIS BODY.
[2018-06-16 15:24] VITALS: BP 124/87
--- NOTE | 2018-06-16 16:09 | NUR ---
ATTEMPTED TO CALL AND NOTIFY TYRA HEIN AT [phone] IN REGARDS TO PATIENT TRANSFER TO UNIT AND STATUS. LEFT VOICEMAIL.
--- NOTE | 2018-06-16 16:30 | NUR ---
TYRA HEIN 911 CASE MANAGEMENT CALLED BACK, LET HER KNOW THE PATIENT IS BACK WITH US AND HE IS IMPROVING. DID ASK HER WHAT HE IS ON THE 911 CASE MANAGEMENT AND SHE SAID FOR "TERRORISTIC THREATENING." HER PHONE NUMBER IS .
[2018-06-16 20:20] VITALS: BP 124/97
--- NOTE | 2018-06-17 04:32 | NUR ---
B) Patient is alert and oriented to self, very confused and unaware, follows simple instructions, I) Administered scheduled medications as ordered, monitored for safety and for needs, R) Mediation compliant, resting quietly in his bed, P) Continue plan of care.
--- NOTE | 2018-06-17 07:51 | NUR ---
THE PATIENT IS AWAKE AND ALERT, HE SAYS HE IS FEELING BETTER, HE IS TALKING AND SMILING, HIS BODY IS STILL RGID AND HE HAS THE RENE THAT IS DRAINING CLEAR YELLOW URINE. HE IS A TOTAL LIFT VIA A ROMI. PROVIDE PRESCRIBED MEDS. ENCOURAGE GROUP PARTICIPATION TO STIMULATE HIS COGNITION. THE PATIENT IS CALM, HE IS INTERACTING APPROPRIATELY. CONTINUE POC.
[2018-06-17 09:26] VITALS: BP 134/56
[2018-06-17 13:34] VITALS: Ht 180.3 cm; Wt 98.7 kg
[2018-06-17 19:20] VITALS: BP 127/85
--- NOTE | 2018-06-18 04:07 | NUR ---
B) Sitting up in day room in lounge chair with peers. No conversing, sleepy and drowsy. Leans to side, left sided weakness. Assisted to bed by two staff without using mechanical lift, pivots with assistance. I) Administer medications as ordered, monitor behavior for changes, encourage socialization, maintain unit safety. R) Given applesauce to take medications. Quiet, no behavior problem, no acting out. P) Continue to monitor per plan of care.
--- NOTE | 2018-06-18 06:10 | NUR ---
Pop catheter removed, 8mls deflated from balloon. Tolerated same well. Had 600mls urine emptied from pop catheter.
[2018-06-18 10:04] VITALS: BP 157/98
--- NOTE | 2018-06-18 10:47 | PSY ---
PATIENT NAME:WINIFRED RIVERA MEDICAL RECORD: [id number] : [birth year] LOCATION:YURY Garcia5 ADMISSION DATE: 06/16/18 ACCOUNT: [id number] PSYCHIATRIC EVALUATION DATE OF EVALUATION: 06/17/18 PSYCHIATRIC EVALUATION IDENTIFYING DATA: The patient is 72 years old and he is admitted to the hospital on a voluntary basis. CHIEF COMPLAINT: Agitation. HISTORY OF PRESENT ILLNESS: The patient was recently admitted to the behavioral unit from local [place] [facility]. He has a known history of bipolar disorder and was admitted to the hospital because of agitation, combative behavior, and agitation. His lithium level was subtherapeutic at that time. He has also been given some Haldol at the [place] [facility] and when he came here, he had some rigidity or fever and elevated CK, CPK, and blood pressure. He was admitted to the intensive care unit with the provisional diagnosis of neuroleptic malignant syndrome stabilized and then returned here to the behavioral unit. Here he is partially oriented and indeed he is oriented to person and place and even somewhat to time and situation. He is much calmer and significantly less agitated. He is no longer having the rigidity. PAST MEDICAL HISTORY: Significant for hyperlipidemia, gait abnormalities with left-sided weakness, and hypertension. PAST PSYCHIATRIC HISTORY: Significant for an established diagnosis of bipolar disorder with extensive longstanding treatment over a long period of time through his adult life. FAMILY HISTORY: Noncontributory. ALLERGIES: No known drug allergies. CURRENT MEDICATIONS: Include Norvasc, Lopressor, lisinopril, and Protonix. SOCIAL HISTORY: The patient has no history of drug or alcohol use. He is . He does have adult children who are involved with his care. MENTAL STATUS EXAMINATION: The patient is awake, alert, and oriented to person and place and somewhat to time and situation. His mood is euthymic. His affect appropriate. Thought processes are circumstantial. Memory, concentration, and abstraction abilities are at least moderately impaired. He denies any active intent to harm himself or others as well as overt psychotic symptoms. ASSETS: Supportive family members. LIABILITIES: Limited insight. DIAGNOSTIC IMPRESSION: AXIS I: Bipolar disorder. Vascular dementia. AXIS II: Deferred. AXIS III: 1. Recent history of neuroleptic malignant syndrome. 2. Hypertension. 3. Hyperlipidemia. AXIS IV: Moderate. AXIS V: Global assessment of functioning is 35. PLAN: At this time, the patient is admitted to the hospital for a comprehensive medical, psychological, and social evaluation. He will be treated with both mood stabilizing and memory enhancing medications. His long-term prognosis is guarded. TRANSINT:[id number] Voice Confirmation ID: [id number] DOCUMENT ID: [id number] GEORGE HAND MD at 1047 CC: [id number] DICTATION DATE: 06/17/18 1605 VOCAL ARTIST: 06/17/18 2110 ADM IN [place] [id number] [place] [id number]
--- NOTE | 2018-06-18 11:19 | NUR ---
B) THE PATIENT IS MORE ALERT AND HE IS TALKING MORE, HE IS ABLE TO MOVE HIS LIMBS BETTER AND HE IS FEEDING HIMSELF BY HIMSELF, NEEDS MINIAMAL ASSIST. HE IS SWALLOWING HIS FOODS AND SAYS HE IS DOING WELL WITH HIS REGULAR DIET. HE CAN STAND AND PIVOT, IT IS SLOW, BUT HE CAN DO IT WITH ASSIST. I) PROVIDE PRESCRIBED MEDS. R) THE PATIENT IS COMPLIANT WITH MEDS. DID CRUSH THEM THIS AM JUST TO BE SURE. P) CONTINUE POC.
[2018-06-18 20:01] VITALS: BP 128/81
--- NOTE | 2018-06-19 02:39 | NUR ---
B) Patient is alert and oriented to person, more alert and doing better, I) Administered scheduled medications as orderd, monitored for safety and for needs, R) Mediation compliant, doing more for himself, improving, P) Continue plan of care.
[2018-06-19 07:12] LABS: ALBUMIN 2.7 g/dL (3.4-5.0); ALKALINE PHOSPHATASE 65 U/L (46-116); ALT (SGPT) 60 U/L (10-68); BILIRUBIN - TOTAL 0.49 mg/dL (0.2-1.3); CALC OSMOLALITY 283 mosm/kg (275-300); CALCIUM 8.4 mg/dL (8.5-10.1); CARBON DIOXIDE 24.9 mmol/L (21.0-32.0); CHLORIDE - SERUM 106 mmol/L (98-107); CREATININE - SERUM 0.9 mg/dL (0.6-1.3); GLUCOSE 104 mg/dL (74-106); POTASSIUM - SERUM 3.5 mmol/L (3.5-5.1); PROTEIN - SERUM 6.6 g/dL (6.4-8.2); SODIUM 141 mmol/L (136-145); UREA NITROGEN 22 mg/dL (7-18); eGFR NON AFRICAN AMERICAN 89 mL/min (90-120)
[2018-06-19 07:15] LABS: BASOPHILS 0.1 % (0-2); EOSINOPHILS 0.9 % (0-7); HEMATOCRIT 38.3 % (42.0-54.0); IMMATURE GRANULOCYTES 0.4 % (0-5); LYMPHOCYTES 35.9 % (15-50); MCH 28.2 pg (26.0-34.0); MCHC 31.3 g/dL (31.0-37.0); MCV 90.1 fL (80.0-100.0); MEAN PLATELET VOLUME 11.1 fL (7.4-10.4); MONOCYTES 9.6 % (2-11); NEUTROPHILS 53.1 % (40-80); PLATELET COUNT 143 10x3/uL (130-400); RBC 4.25 10x6/uL (4.20-6.10); RDW 13.9 % (11.5-14.5); WBC 8.5 10x3/uL (4.8-10.8)
--- NOTE | 2018-06-19 09:44 | PN ---
PATIENT:WINIFRED RIVERA MEDICAL RECORD: [id number] LOCATION:ClaudeSHAZIATrini KennyMickey ADMISSION DATE: 06/16/18 PROGRESS NOTE DATE OF SERVICE: 06/18/2018 SUBJECTIVE: The patient's case was discussed with staff. He has no new complaint. OBJECTIVE: The patient is tolerating his Depakote well. He has no further evidence of muscle rigidity. ASSESSMENT: 1. Bipolar disorder. 2. Vascular dementia. PLAN: The patient will be given a low dose of Namenda to assist with his cognitive impairment. He will be monitored for clinical changes associated with its use. TRANSINT:[id number] Voice Confirmation ID: [id number] DOCUMENT ID: [id number] GEORGE HAND MD at 0944 CC: [id number] DICTATION DATE: 06/18/18 1059 [employer] CONSULTANT: 06/18/18 1121 ADM IN [place] [address] [place] [address]
[2018-06-19 15:58] VITALS: BP 132/82
--- NOTE | 2018-06-19 17:13 | NUR ---
ORIENTED TO SELF.SMILES A LOT.COMPLIANT WITH STAFF AND MEDS.MOVING ALL EXTREMITIES EQUALLY.NIGHT STAFF REPORTED HE TOOK A FEW STEPS THIS AM.WILL CONTINUE WITH PLAN OF CARE,MONITOR FOR CHANGES AND SAFETY.
[2018-06-19 20:21] VITALS: BP 153/89
--- NOTE | 2018-06-19 21:27 | NUR ---
RECEIVED IN DAYROOM. SITTING IN RECLINER AND WATCHING TV. CALM AND COOPERATIVE WITH CARE AND ASSESSMENT. NO SIGNS OF AGGRESSION. REDIRECT AND REORIENT NEEDED. CONTINUES TO SIT IN RECLINER AT THIS TIME. CONTINUE PLAN OF CARE.
[2018-06-20 08:54] VITALS: BP 131/84
--- NOTE | 2018-06-20 09:52 | NUR ---
PT IS ALERT AND ORIENTED TO PERSON. CALM AND COOPERATIVE WITH ASSESSMENT. REDIRECT AND REORIENT NEEDED. NO AGGRESSION NOTED. PRESCRIBED MEDS PROVIDED. MED COMPLIANT. FALL PRECAUTIONS IN PLACE. WILL CONTINUE TO MONITOR Q 15 MINUTES FOR SAFETY. WILL CPOC.
--- NOTE | 2018-06-20 14:21 | NUR ---
Nutrition Follow Up: Chart reviewed Diet: Regular [facility] Soft PO Intake: 69% meal avg Meds and labs reviewed Rec continue current diet. RD following.
--- NOTE | 2018-06-20 15:21 | PN ---
PATIENT:WINIFRED RIVERA MEDICAL RECORD: [id number] LOCATION:YURY Kenny112 ADMISSION DATE: 06/16/18 PROGRESS NOTE DATE OF SERVICE: 06/19/2018 SUBJECTIVE: The patient's case was discussed with staff. He has no new complaint. OBJECTIVE: The patient is in good behavioral control. He has poor insight about his condition. He does tolerate his medicines well. ASSESSMENT: 1. Bipolar disorder. 2. Vascular dementia. PLAN: The patient's behavior has dramatically improved. He also was showing no signs or symptoms of neuroleptic malignant syndrome. He is tolerating the Depakote very well. I anticipate he can be transitioned out of the hospital soon. TRANSINT:[id number] Voice Confirmation ID: [id number] DOCUMENT ID: [id number] GEORGE HAND MD at 1521 CC: [id number] DICTATION DATE: 06/19/18 0953 VASCULAR ULTRASOUND TECHNOLOGIST: 06/19/18 1224 ADM IN [place] [id number] [place] [address]
--- NOTE | 2018-06-20 21:56 | NUR ---
RECEIVED IN DAYROOM. SITTIING IN RECLINER WHILE WATCHING TV. CALM AND COOPERATIVE WITH CARE AND ASSESSMENT. NO SIGNS OF AGGRESSION. REDIRECT AND REORIENT NEEDED. RESTING IN BED WITH EYES OPEN AT THIS TIME. CONTINUE PLAN OF CARE.
[2018-06-21 08:01] VITALS: BP 149/89
--- NOTE | 2018-06-21 11:36 | PN ---
PATIENT:WINIFRED RIVERA MEDICAL RECORD: [id number] LOCATION:AICHATrini Kenny112 ADMISSION DATE: 06/16/18 PROGRESS NOTE DATE OF SERVICE: 06/20/2018 SUBJECTIVE: The patient's case was discussed with staff. He has no new complaint. OBJECTIVE: The patient is impaired significantly and seriously. He has very limited insight about his situation. It is clear that he is impaired cognitively. ASSESSMENT: Bipolar disorder. PLAN: The patient will have a Depakote level checked today. His long-term prognosis is guarded. I anticipate he can be transitioned back to the hospital soon. TRANSINT:[id number] Voice Confirmation ID: [id number] DOCUMENT ID: [id number] GEORGE HAND MD at 1136 CC: [id number] DICTATION DATE: 06/20/18 1545 WATER SYSTEM OPERATOR: 06/20/18 1801 ADM IN [place] [id number] [place] [id number]
[2018-06-21] MEDS ORDERED: Depakote DR PO (13:05)
[2018-06-21] MEDS ORDERED: LISINOPRIL40 MG PO (13:05)
[2018-06-21] MEDS ORDERED: METOPROLOL TART50 MG PO (13:05)
[2018-06-21] MEDS ORDERED: NIZORAL 2 % SH120 ML TOPICAL (13:06)
[2018-06-21] MEDS ORDERED: VIGAMOX3 ML EACH EYE (13:06)
[2018-06-21] MEDS ORDERED: NAMENDA5 MG PO (13:06)
[2018-06-21] MEDS ORDERED: KENALOG 0.1 % 115 GM TOPICAL (13:07)
[2018-06-21] MEDS ORDERED: VITAMIN D5000 UNIT PO (13:07)
--- NOTE | 2018-06-21 13:56 | NUR ---
PT ALERT AND ORIENTED X 3. CALM AND COOPERATIVE WITH ASSESSMENT. NO AGGRESSION NOTED. REDIRECT AND REORIENT NEEDED. MED COMPLIANT. WILL CPOC.
[2018-06-21 20:14] VITALS: BP 123/79
--- NOTE | 2018-06-21 22:32 | NUR ---
RECEIVED IN DAYROOM. SITTING IN WHEELCHAIR AND WATCHING TV. CALM AND COOPERATIVE WITH CARE AND ASSESSMENT. NO SIGNS OF AGGRESSION. REDIRECT AND REORIENT NEEDED. RESTING IN BED WITH EYES CLOSED AT THIS TIME. CONTINUE PLAN OF CARE.
[2018-06-22 08:00] VITALS: BP 144/101
--- NOTE | 2018-06-22 14:15 | PN ---
PATIENT:WINIFRED RIVERA MEDICAL RECORD: [id number] LOCATION:YURY ArceMarv112 ADMISSION DATE: 06/16/18 PROGRESS NOTE DATE OF SERVICE: 06/21/2018 SUBJECTIVE: The patient's case was discussed with staff. He has no new complaint. OBJECTIVE: The patient denies intent to harm himself or others. He generally tolerates his medicines well. ASSESSMENT: Bipolar disorder. PLAN: The patient has no evidence of acute or direct dangerousness nor does he have evidence of mood lability. I am going to transition him out of the hospital tomorrow if this level of improvement continues. TRANSINT:[id number] Voice Confirmation ID: [id number] DOCUMENT ID: [id number] GEORGE HAND MD at 1415 CC: [id number] DICTATION DATE: 06/21/18 171 RECORD PRESS SUPERVISOR: 06/21/18 2100 ADM IN [place] [id number] [place] [id number]
--- NOTE | 2018-06-22 14:32 | NUR ---
PT IS ALERT AND ORIENTED TO PERSON AND PLACE, CALM AND COOPERATIVE WITH ASSESSMENT. REDIRECT AND REORIENT NEEDED. NO AGGRESSION NOTED. MED COMPLIANT. WILL CPOC.
--- NOTE | 2018-06-22 20:38 | NUR ---
RECEIVED IN DAYROOM. SITTING IN WHEELCHAIR AND SOCIALIZING WITH STAFF. CALM AND COOPERATIVE WITH CARE AND ASSESSMENT. NO SIGNS OF AGGRESSION. REDIRECT AND REORIENT NEEDED. CONTINUES TO SOCIALIZE WITH STAFF AT THIS TIME. CONTINUE PLAN OF CARE.
[2018-06-23 07:13] VITALS: BP 127/82
[2018-06-23 08:21] VITALS: BP 134/91
--- NOTE | 2018-06-23 16:09 | PN ---
PATIENT:WINIFRED RIVERA MEDICAL RECORD: [id number] LOCATION:YURY Kenny112 ADMISSION DATE: 06/16/18 PROGRESS NOTE DATE OF SERVICE: 06/22/2018 SUBJECTIVE: The patient's case was discussed with staff. He has no new complaint. OBJECTIVE: The patient denies that he would seek to harm himself or others. He is oriented to person and place and mostly to time and situation. His mood is euthymic. His affect appropriate. He shows no evidence of mood lability. ASSESSMENT: Bipolar disorder. PLAN: The patient will be maintained on current medications, which I have reviewed. He will be transitioned out of the hospital today. His long-term prognosis is guarded. Followup will be with his primary care [facility] physician. TRANSINT:[id number] Voice Confirmation ID: [id number] DOCUMENT ID: [id number] GEORGE HAND MD at 1609 CC: [id number] DICTATION DATE: 06/22/18 1435 BOLT MAN: 06/22/18 1446 ADM IN [place] [id number] [place] [id number]
--- NOTE | 2018-06-23 16:38 | NUR ---
ORIENTED TO SELF AND PLACE.COMPLIANT WITH STAFF AND MEDS.VERY TALKATIVE AND FRIENDLY WITH STAFF AND PEERS.WILL CONTINUE WITH PLAN OF CARE,MONITOR FOR CHANGES AND SAFETY.
[2018-06-23 20:22] VITALS: BP 128/84
--- NOTE | 2018-06-24 03:46 | NUR ---
B) Patient is alert and oriented to person and place, hyperverbal at times, flight of ideas at times, I) Administered scheduled medications as ordered, monitored for safety R) Mediation compliant, restless at times during the night, P) Continue plan of care.
[2018-06-24 08:59] VITALS: BP 135/82
--- NOTE | 2018-06-24 11:00 | NUR ---
B) The patient is awake and alert, he is pleasant, he talks nonstop and if he isn't talking he is singing. He sits in his w/c and self propels. He has not shown any aggression today. I) Provide prescribed meds. R) The patient is compliant with meds. P) Continue POC.
--- NOTE | 2018-06-24 14:46 | NUR ---
Nutrition follow-up: Diet: Regular PO intake 100% of most meals Labs reviewed +BM RDN following.
--- NOTE | 2018-06-24 15:40 | PN ---
PATIENT:WINIFRED RIVERA MEDICAL RECORD: [id number] LOCATION:YURY Kenny112 ADMISSION DATE: 06/16/18 PROGRESS NOTE DATE OF SERVICE: 06/23/2018 SUBJECTIVE: The patient's case was discussed with staff. He has no new complaint. OBJECTIVE: The patient is impaired cognitively, but in good behavioral control. He is tolerating his medicines well. He has not been aggressive. ASSESSMENT: Bipolar disorder. PLAN: The patient can be discharged at any time. It is my understanding that there are still issues associated with the office of long-term care and giving us approval. Once those are cleared, he will be transitioned out of the hospital. TRANSINT:[id number] Voice Confirmation ID: [id number] DOCUMENT ID: [id number] GEORGE HAND MD at 1540 CC: [id number] DICTATION DATE: 06/23/18 165 CASE TECHNICIAN: 06/23/18 2304 ADM IN [facility] [address] [place] [id number]
--- NOTE | 2018-06-24 21:03 | NUR ---
RECEIVED IN HALLWAY OUTSIDE OF NURSES STATION. CALM AND COOPERATIVE WITH CARE AND ASSESSMENT. NO SIGNS OF AGGRESSION. NO AGITATION. REDIRECT AND REORIENT NEEDED. RESTING IN BED WITH EYES CLOSED AT THIS TIME. CONTINUE PLAN OF CARE.
[2018-06-24 22:55] VITALS: BP 149/88
[2018-06-25 08:00] VITALS: BP 140/87
--- NOTE | 2018-06-25 10:07 | NUR ---
REC'D PATIENT SITTING IN WHEELCHAIR NEXT TO NURSES STATION. CHAIR ALARM ON AND ACTIVE. NO ACUTE DISTRESS NOTED. PT IN A PLEASANT MOOD. V/S AND ASSESSMENT COMPLETED. MEDICATION COMPLIANT. WILL CONT TO MONITOR Q 15 MINS FOR SAFETY.
--- NOTE | 2018-06-25 11:00 | PN ---
PATIENT:WINIFRED RIVERA MEDICAL RECORD: [id number] LOCATION:YURY Zoya112 ADMISSION DATE: 06/16/18 PROGRESS NOTE DATE OF SERVICE: 06/24/2018 SUBJECTIVE: The patient's case was discussed with staff. He has no new complaint. OBJECTIVE: The patient is in good behavioral control. He has poor insight about his condition. He does tolerate his medicines well. ASSESSMENT: Bipolar disorder. PLAN: The patient will be transitioned out of the hospital soon. Arrangements are being made for him to go to assisted Living. There are some financial issues that have to be handled, but I anticipate he can reasonably be transitioned out of the hospital soon. TRANSINT:[id number] Voice Confirmation ID: [id number] DOCUMENT ID: [id number] GEORGE HAND MD at 1100 CC: [id number] DICTATION DATE: 06/24/18 1609 PRECISION MACHINING INSTRUCTOR: 06/24/18 2355 ADM IN [facility] [address] [place] [address]
--- NOTE | 2018-06-25 18:24 | NUR ---
AT 1750 PT NOTED TO FLOOR IN DINING AREA WITH BACK TOWARD THE WALL. THIS NURSE AND TECH ASSISTED PT TO WHEELCHAIR. PT STOOD WITH ASSISTANCE AND PIVOTED TO CHAIR. NO ACUTE DISTRESS NOTED. PT V/S TAKEN: B/P: 157/95,P:89, T:99.2, 97%, R:22. PT NOTED WITH A RED AREA TO BACK WITH A SMALL ABRASION. NOTIFIED MAINTENANCE JOURNEYMAN AT 1750, CALLED LARRY AMARO AT 175, IF ANY PAIN GET A X-RAY, NOTIFIED Lewis ERAZO OF INCIDENT AT 175. PT STATED HE WAS FINE AND NO PAIN. PT NOTED WITH SHOES AND NONSLIP SOCKS NOTED. WILL CONT TO MONTIOR Q 15 MINS FOR SAFETY.
--- NOTE | 2018-06-25 18:46 | NUR ---
PT DENIES ANY PAIN AT THIS TIME. PT STATED "IM NOT HURTING I DIDN'T HIT ANYTHING ESSENTIAL" WILL CONT Q 2 HOUR NEURO CHECKS AND MONITOR Q 15 MINS FOR SAFETY.
--- NOTE | 2018-06-25 20:33 | NUR ---
PATIENT IS AWAKE, ALERT, CONFUSED ABOUT SITUATION. NO INSIGHT, ARGUMENTAIVE THIS EVENING, COMPLIANT WITH MEDS, NO ADVERSE REACTION NOTED. WILL FOLLOW POC
[2018-06-26 00:35] VITALS: BP 160/97
[2018-06-26 07:00] VITALS: BP 125/88
--- NOTE | 2018-06-26 10:05 | PN ---
PATIENT:WINIFRED RIVERA MEDICAL RECORD: [id number] LOCATION:YURY Kenny112 ADMISSION DATE: 06/16/18 PROGRESS NOTE DATE OF SERVICE: 06/25/2018 SUBJECTIVE: The patient's case was discussed with staff. He has no new complaint. OBJECTIVE: The patient is in good behavioral control. He is tolerating his medicines well. I anticipate he can be transitioned to assisted living as soon as arrangements are made with the facility. TRANSINT:[id number] Voice Confirmation ID: [id number] DOCUMENT ID: [id number] GEORGE HAND MD at 1005 CC: [id number] DICTATION DATE: 06/25/18 1151 ACCOUNTS PAYABLE ASSISTANT: 06/25/18 1257 ADM IN [place] [id number] [place] [address]
--- NOTE | 2018-06-26 17:59 | NUR ---
PT IN WHEELCHAIR IN DAY AREA. CHAIR ALARM IN PLACE AND ACTIVE. NO ACUTE DISTRESS NOTED.AWAKE WITH CONFUSION NOTED. MED COMPLIANT. PT EDUCATED ON LETTING STAFF KNOW WHEN HE NEEDS TO USE RESTROOM OR AMBULATE. WILL CONT TO MONITOR Q 15 MINS FOR SAFETY.
[2018-06-26 20:22] VITALS: BP 156/80
--- NOTE | 2018-06-26 23:13 | NUR ---
PATIENT IS COOPERATIVE, HYPERVERBAL, INTERACTS, COMPLIANCE WITH MED, NO ADVERSE REAACTION NOTED. WILL FOLLOW POC
[2018-06-27 07:00] VITALS: BP 132/88
--- NOTE | 2018-06-27 07:45 | NUR ---
REC'D PT SITTING IN W/C BY NURSES STATION. AAOX1. CONFUSION NOTED. CHAIR ALARM IN PLACE AND ACTIVE. RESP EVEN AND NONLABORED. NO DISTRESS NOTED. PT IS IN GOOD SPIRITS. WILL CONT TO MONITOR Q 15 MINS.
--- NOTE | 2018-06-27 13:15 | NUR ---
PT DISCHARGE TO [facility] IN STABLE CONDITION. NO DISTRESS NOTED. RESP EVEN AND NONLABORED. PT IN W/C AND TRANSFERRED TO W/C FROM [facility]. PT BELONGINGS SENT WITH STAFF FROM [facility].
--- NOTE | 2018-06-27 13:15 | NUR ---
PATIENT DISCHARGED TO [facility]. NO DISTRESS NOTED. PAPERWORK FAXED TO FACILITY AND PAPERWORK SENT WITH PATIENT TO FACILITY. PT STABLE AT THIS TIME. BELONGINGS SENT WITH PT TO FACILITY.
--- NOTE | 2018-06-27 15:11 | PN ---
PATIENT:WINIFRED RIVERA MEDICAL RECORD: [id number] LOCATION:YURY Kenny112 ADMISSION DATE: 06/16/18 PROGRESS NOTE DATE OF SERVICE: 06/26/2018 SUBJECTIVE: The patient's case was discussed with staff. He has no new complaint. OBJECTIVE: The patient is in good behavioral control with limited insight about his condition. He generally tolerates his medicines well. ASSESSMENT: No change in diagnoses. PLAN: I anticipate the patient could be transitioned out of the hospital soon. He will be going to the [facility] [place]. TRANSINT:[id number] Voice Confirmation ID: [id number] DOCUMENT ID: [id number] GEORGE HAND MD at 1511 CC: [id number] DICTATION DATE: 06/26/18 112 SENIOR MECHANICAL ESTIMATOR: 06/26/18 1833 ADM IN [facility] [address] [place] [address]
--- NOTE | 2018-06-28 15:34 | PN ---
PATIENT:WINIFRED RIVERA MEDICAL RECORD: [id number] LOCATION:[facility] ADMISSION DATE: 06/16/18 PROGRESS NOTE DATE OF SERVICE: 06/27/2018 SUBJECTIVE: The patient's case was discussed with staff. He has no new complaint. OBJECTIVE: The patient denies intent to harm himself or others. He is tolerating his medicines well. His mood is euthymic. His affect is appropriate. ASSESSMENT: Bipolar disorder. PLAN: The patient will be transitioned to a detention today. His long-term prognosis is guarded. Both supportive and educational interventions were made. TRANSINT:[id number] Voice Confirmation ID: [id number] DOCUMENT ID: [id number] GEORGE HAND MD at 1534 CC: [id number] DICTATION DATE: 06/27/18 1541 PORTER SAMPLE CASE: 06/27/18 1822 DIS IN 06/27/18 [facility] [address] [place] [address]
--- NOTE | 2018-06-29 15:01 | DS ---
PATIENT:WINIFRED RIVERA :[birth year] MEDICAL RECORD: [id number] DISCHARGE SUMMARY ADMISSION DATE: 06/16/18 DISCHARGE DATE: 06/27/18 IDENTIFYING DATA: The patient is 72 years old, and he was admitted to the hospital on a voluntary basis secondary to agitation. The patient has a known history of bipolar disorder and recently has become combative and agitated. He had been on lithium and stabilized for a long time, but at the time of admission had a subtherapeutic level. In association with the agitation, he was given some Haldol and was subsequently found to be rigid, febrile, and with an elevated CPK and blood pressure. It was thought that he had neuroleptic malignant syndrome and he was transferred to the intensive care unit for management. His symptoms resolved and it appears that the cluster of symptoms did not quite rise to the level of saying he definitively had neuroleptic malignant syndrome, but also were more severe than what you would see with an ordinary dystonic reaction and had symptoms in addition to that. So, at this point, it was really unclear what had happened, but I think it is best to not administer Haldol to this patient again. He was continuing to have some mood lability and was subsequently transferred back to the behavioral unit for additional treatment. HOSPITAL COURSE: The patient was admitted and fully evaluated. He was given a mood stabilizing agent and medications for his cognitive impairment. He showed very rapid and significant improvement, was displaying a near euthymic mood, and was subsequently transitioned out of the hospital. DISCHARGE DIAGNOSES: AXIS I: Bipolar disorder. Vascular dementia. AXIS II: Deferred. AXIS III: Recent history of medication reaction to Haldol, hypertension, hyperlipidemia. AXIS IV: Moderate. AXIS V: Global assessment of functioning is 40. PLAN: At the time of discharge, the patient was in good behavioral control and had no active thoughts of harming himself or others. He was tolerating his medications well. His long-term prognosis is guarded. TRANSINT:[id number] Voice Confirmation ID: [id number] DOCUMENT ID: [id number] GEORGE HAND MD at 1501 CC: [id number] DICTATION DATE: 06/28/18 1539 APRON OPERATOR: 06/29/1818 DIS IN 06/27/18 [place] [id number] [facility] [place] [address]
== END 2018-06-27 13:15 | DRG 885 ==
LOC: D.PSYCH
PROVIDERS: Family Medicine; ADMIT Psychiatry & Neurology Psychiatry; ATTEND Psychiatry & Neurology Psychiatry
DX: F31.9 Bipolar disorder, unspecified (principal); G21.0 Malignant neuroleptic syndrome; F01.51 Vascular dementia, unspecified severity, with behavioral disturbance; F20.9 Schizophrenia, unspecified; R53.81 Other malaise; I10 Essential (primary) hypertension; E87.6 Hypokalemia; E55.9 Vitamin D deficiency, unspecified; E78.5 Hyperlipidemia, unspecified; K59.00 Constipation, unspecified; E05.90 Thyrotoxicosis, unspecified without thyrotoxic crisis or storm; H10.9 Unspecified conjunctivitis; L21.9 Seborrheic dermatitis, unspecified; Z91.81 History of falling

== ENCOUNTER 2018-09-18 09:16 | Emergency (ER) | payer MEDICARE, MEDICAID ==
[~2018-09-18] VITALS: Ht 180.3 cm; Wt 84.5 kg
[~2018-09-18 09:16] MED LIST changes: +Depakote DR PO; +KENALOG 0.1 % 115 GM TOPICAL; +NAMENDA5 MG PO; +NIZORAL 2 % SH120 ML TOPICAL; +VIGAMOX3 ML EACH EYE; +VITAMIN D5000 UNIT PO
[2018-09-18 09:17] VITALS: Ht 180.3 cm; Wt 84.5 kg
[2018-09-18 10:18] LABS: BASOPHILS 0 % (0-2); EOSINOPHILS 0.1 % (0-7); HEMATOCRIT 38.5 % (42.0-54.0); HEMOGLOBIN 12.4 g/dL (13.5-17.5); IMMATURE GRANULOCYTES 0.1 % (0-5); LYMPHOCYTES 12.2 % (15-50); MCH 29.5 pg (26.0-34.0); MCHC 32.2 g/dL (31.0-37.0); MCV 91.4 fL (80.0-100.0); MEAN PLATELET VOLUME 11.2 fL (7.4-10.4); NEUTROPHILS 77.6 % (40-80); PLATELET COUNT 166 10x3/uL (130-400); RBC 4.21 10x6/uL (4.20-6.10); WBC 9.3 10x3/uL (4.8-10.8)
[2018-09-18] MEDS ORDERED: LIPITOR40 MG PO (10:57)
[2018-09-18 10:58] LABS: APPEARANCE CLEAR (CLEAR); BILIRUBIN NEGATIVE (NEGATIVE); COLOR YELLOW (YELLOW); GLUCOSE NEGATIVE (NEGATIVE); KETONE NEGATIVE (NEGATIVE); NITRITE NEGATIVE (NEGATIVE); PROTEIN NEGATIVE (NEGATIVE)
[2018-09-18 10:59] LABS: BACTERIA FEW /hpf (NONE SEEN); EPITHELIAL CELLS 0-5 /hpf (0-5); MUCUS <1+ /lpf (NONE SEEN); RED CELLS - URINE 0-5 /hpf (0-5); WHITE CELLS - URINE 0-5 /hpf (0-5)
[2018-09-18 11:06] LABS: ALKALINE PHOSPHATASE 61 U/L (46-116); ALT (SGPT) 24 U/L (10-68); BILIRUBIN - TOTAL 0.66 mg/dL (0.2-1.3); CALC OSMOLALITY 288 mosm/kg (275-300); CALCIUM 9.3 mg/dL (8.5-10.1); CARBON DIOXIDE 27.8 mmol/L (21.0-32.0); CHLORIDE - SERUM 107 mmol/L (98-107); GLUCOSE 98 mg/dL (74-106); POTASSIUM - SERUM 3.4 mmol/L (3.5-5.1); PROTEIN - SERUM 7.5 g/dL (6.4-8.2); SODIUM 144 mmol/L (136-145); UREA NITROGEN 17 mg/dL (7-18); eGFR NON AFRICAN AMERICAN 78 mL/min (90-120)
[2018-09-18 12:36] VITALS: BP 133/62
== END 2018-09-18 12:37 | disposition home or self-care (01) ==
LOC: D.ER 09:16
PROVIDERS: Family Medicine
DX: M54.5 Low back pain (principal); M54.6 Pain in thoracic spine

== ENCOUNTER 2018-09-19 10:41 | Observation (INO) | payer MEDICARE, MEDICAID ==
[~2018-09-19] VITALS: Ht 180.3 cm; Wt 104.5 kg
[~2018-09-19 10:41] MED LIST changes: +LIPITOR40 MG PO
[2018-09-19 12:00] VITALS: BP 112/64
[2018-09-19 12:37] LABS: BASOPHILS 0 % (0-2); EOSINOPHILS 0 % (0-7); HEMATOCRIT 37.4 % (42.0-54.0); IMMATURE GRANULOCYTES 0.2 % (0-5); LYMPHOCYTES 13.6 % (15-50); MCH 29.1 pg (26.0-34.0); MCHC 32.1 g/dL (31.0-37.0); MCV 90.8 fL (80.0-100.0); MEAN PLATELET VOLUME 10.2 fL (7.4-10.4); MONOCYTES 8.7 % (2-11); NEUTROPHILS 77.5 % (40-80); PLATELET COUNT 177 10x3/uL (130-400); RBC 4.12 10x6/uL (4.20-6.10); RDW 13.4 % (11.5-14.5); WBC 10.1 10x3/uL (4.8-10.8)
[2018-09-19 12:52] LABS: ALBUMIN 2.9 g/dL (3.4-5.0); ALKALINE PHOSPHATASE 63 U/L (46-116); ALT (SGPT) 23 U/L (10-68); CALC OSMOLALITY 287 mosm/kg (275-300); CALCIUM 9.4 mg/dL (8.5-10.1); CARBON DIOXIDE 27.2 mmol/L (21.0-32.0); CHLORIDE - SERUM 108 mmol/L (98-107); CREATININE - SERUM 0.9 mg/dL (0.6-1.3); GLUCOSE 122 mg/dL (74-106); POTASSIUM - SERUM 3.7 mmol/L (3.5-5.1); PROTEIN - SERUM 7.7 g/dL (6.4-8.2); SODIUM 143 mmol/L (136-145); UREA NITROGEN 17 mg/dL (7-18); VALPROIC ACID (DEPAKOTE) 76.8 ug/mL (50.0-100.0); eGFR NON AFRICAN AMERICAN 89 mL/min (90-120)
[2018-09-19 13:26] VITALS: BP 109/64
--- NOTE | 2018-09-19 13:37 | NUR ---
ASSISTED PT UP TO [facility]. PT ABLE TO STND AND PIVOT WITH ASSSIT OF 1-2 PERSON. DENIES PAIN IN LEGS. PT ALSO ABLE TO STAND AND RTN TO BED WITH ASSIST.
[2018-09-19 14:57] VITALS: BP 110/74
[2018-09-19 15:27] LABS: APPEARANCE CLEAR (CLEAR); COLOR DK YELLOW (YELLOW)
[2018-09-19 15:28] LABS: BILIRUBIN NEGATIVE (NEGATIVE); GLUCOSE NEGATIVE (NEGATIVE); KETONE NEGATIVE (NEGATIVE); NITRITE NEGATIVE (NEGATIVE); PROTEIN TRACE mg/dL (NEGATIVE); UROBILINOGEN NORMAL (NORMAL)
--- NOTE | 2018-09-19 15:40 | NUR ---
SLEEPING IN BED WITH EYES CLOSED. AROUSES EASILY WHEN NAME CALLED. DENIES ANY C/O
[2018-09-19 15:41] VITALS: BP 111/72
--- NOTE | 2018-09-19 16:43 | NUR ---
REPORT CALLED TO LAUREN BY SBAR FORMAT
--- NOTE | 2018-09-19 17:04 | NUR ---
TRANSPORTED TO FLOOR ROOM #2223 CONDITION STABLE. NS INFUSING @ 50ML/HR TO LAC
--- NOTE | 2018-09-19 19:40 | NUR ---
PT LYING IN BED RESTING WITHOUT DISTRESS, ALERT AND ORIENTED. IV LEFT AC INFUSING NS @ 50. DENIES NEEDS OR PAIN AT THIS TIME. CL IN REACH, WILL CTM
[2018-09-19 20:00] VITALS: BP 102/57
[2018-09-20 00:41] VITALS: Ht 180.3 cm; Wt 104.5 kg
[2018-09-20 01:17] VITALS: BP 119/73
[2018-09-20 05:20] VITALS: BP 133/81
[2018-09-20 05:46] LABS: BASOPHILS 0.2 % (0-2); EOSINOPHILS 1.4 % (0-7); HEMATOCRIT 32.6 % (42.0-54.0); HEMOGLOBIN 10.1 g/dL (13.5-17.5); IMMATURE GRANULOCYTES 0.2 % (0-5); LYMPHOCYTES 30.5 % (15-50); MCH 28.4 pg (26.0-34.0); MCV 91.6 fL (80.0-100.0); MEAN PLATELET VOLUME 10.4 fL (7.4-10.4); NEUTROPHILS 54.7 % (40-80); PLATELET COUNT 163 10x3/uL (130-400); RBC 3.56 10x6/uL (4.20-6.10); RDW 13.6 % (11.5-14.5)
[2018-09-20 06:00] LABS: WBC 6.3 10x3/uL (4.8-10.8)
[2018-09-20 06:01] LABS: CALC OSMOLALITY 292 mosm/kg (275-300); CALCIUM 8.7 mg/dL (8.5-10.1); CARBON DIOXIDE 28.8 mmol/L (21.0-32.0); CHLORIDE - SERUM 110 mmol/L (98-107); GLUCOSE 99 mg/dL (74-106); MAGNESIUM - SERUM 2.1 mg/dL (1.8-2.4); PHOSPHOROUS 3.4 mg/dL (2.5-4.9); SODIUM 146 mmol/L (136-145); UREA NITROGEN 18 mg/dL (7-18); eGFR NON AFRICAN AMERICAN 78 mL/min (90-120)
[2018-09-20 06:03] LABS: POTASSIUM - SERUM 3.1 mmol/L (3.5-5.1)
[2018-09-20 09:00] VITALS: BP 115/79; BP 140/74
--- NOTE | 2018-09-20 12:57 | MORECARE ---
CASE MANAGEMENT DISCHARGE SUMMARY PATIENT: WINIFRED RIVERA UNIT: [id number] ADM DATE: 09/19/18 AGE: 72 : [birth year] SEX: M ROOM/BED: D.2223 AUTHOR: DAVID YIN PHYSICIAN: REFERRING PHYSICIAN: MERCEDES DEL REAL MD DATE OF SERVICE: 09/20/18 Discharge Plan Patient Name: WINIFRED RIVERA Facility: [facility]:[place] : 1945 Planned Disposition: [facility] Facility w Plan Readm Anticipated Discharge Date: 09/20/18 Discharge Date: Expected LOS: 1 Initial Reviewer: [email or web address] Initial Review Date: 09/20/2018 Generated: 09/20/18 1:57 pm Comments DCP- Discharge Planning Updated by [email or web address]: Mallory Restrepo on 09/20/18 11:[address] Patient Name: WINIFRED RIVERA Admission Status: ER Accout number: [id number] Admission Date: 09-19-2018 : 1945 Admission Diagnosis: Attending: MERCEDES DEL REAL Current LOS: 1 Anticipated DC Date: 09-20-2018 Planned Disposition: [facility] Facility w Plan Readm Primary Insurance: [facility] [place] or PPO Discharge Planning Comments: Discharge orders received. He will be returning to a [facility] bed today. He agrees with discharge plan. I met with him and he states I do not need to inform family that he is going back today. I spoke with Scarlet at [facility] and faxed clinical to [phone]. They are picking him up between 2:30 and 3, patient relations coordinator informed. CM will continue to follow and assist with discharge planning/needs. Public Safety Police: Mallory Restrepo External Providers External Provider: [facility] Next Contact Date: Service Request Date: Service Type: Resolution: Reviewer: Comments: Patient Name: WINIFRED RIVERA Page [phone] at [phone] All edits/amendments must be made on the electronic document DICTATION DATE: 09/20/18 1256 FINANCE MGR: DEVIN 09/20/18 1256 RPT#: [id number] DC DATE: STATUS: ADM IN [facility] [address] [facility] [place] [address] END OF REPORT
== END 2018-09-20 15:06 | disposition home or self-care (01) ==
LOC: D.ER 10:41 → D.MS 16:39 → OBSVTIME 16:39 → D.MS 09-20 15:06
PROVIDERS: Family Medicine; ADMIT Family Medicine; ATTEND Family Medicine
DX: R53.1 Weakness (principal); R53.81 Other malaise; I10 Essential (primary) hypertension; F20.9 Schizophrenia, unspecified; E78.5 Hyperlipidemia, unspecified; F31.9 Bipolar disorder, unspecified; E55.9 Vitamin D deficiency, unspecified; F01.50 Vascular dementia, unspecified severity, without behavioral disturbance, psychotic disturbance, mood disturbance, and anxiety; K21.9 Gastro-esophageal reflux disease without esophagitis

== ENCOUNTER 2019-07-31 12:43 | Emergency (ER) | payer MEDICARE, MEDICAID ==
[~2019-07-31] VITALS: Ht 180.3 cm; Wt 81.8 kg
[2019-07-31 12:48] VITALS: Ht 180.3 cm; Wt 81.8 kg
[2019-07-31 14:56] LABS: BILIRUBIN NEGATIVE (NEGATIVE); GLUCOSE NEGATIVE (NEGATIVE); KETONE NEGATIVE (NEGATIVE); NITRITE NEGATIVE (NEGATIVE); UROBILINOGEN 4 mg/dL (NORMAL)
[2019-07-31 14:58] LABS: BACTERIA FEW /hpf (NEGATIVE); RED CELLS - URINE 0-5 /hpf (0-5); WHITE CELLS - URINE OCC /hpf (NEGATIVE)
[2019-07-31 16:07] LABS: CALC OSMOLALITY 284 mosm/kg (275-300); CALCIUM 9.2 mg/dL (8.5-10.1); CARBON DIOXIDE 25.6 mmol/L (21.0-32.0); CHLORIDE - SERUM 105 mmol/L (98-107); CREATININE - SERUM 0.8 mg/dL (0.6-1.3); GLUCOSE 100 mg/dL (74-106); POTASSIUM - SERUM 4.2 mmol/L (3.5-5.1); SODIUM 140 mmol/L (136-145); UREA NITROGEN 29 mg/dL (7-18); eGFR NON AFRICAN AMERICAN > 90 mL/min (90-120)
[2019-07-31 16:08] LABS: HEMATOCRIT 33.5 % (42.0-54.0); HEMOGLOBIN 10.1 g/dL (13.5-17.5); LYMPHOCYTES 20.6 % (15-50); MCH 27.7 pg (26.0-34.0); MCHC 30.1 g/dL (31.0-37.0); MEAN PLATELET VOLUME 10.5 fL (7.4-10.4); NEUTROPHILS 69.5 % (40-80); PLATELET COUNT 182 10x3/uL (130-400); RBC 3.64 10x6/uL (4.20-6.10); RDW 13.7 % (11.5-14.5); WBC 14.1 10x3/uL (4.8-10.8)
[2019-07-31 16:14] LABS: ALBUMIN 2.8 g/dL (3.4-5.0); ALKALINE PHOSPHATASE 83 U/L (30-120); ALT (SGPT) 32 U/L (10-68); BILIRUBIN - TOTAL 0.53 mg/dL (0.2-1.3); PROTEIN - SERUM 7.2 g/dL (6.4-8.2)
[2019-07-31 18:54] VITALS: BP 111/66
== END 2019-07-31 18:55 | disposition home or self-care (01) ==
LOC: D.ER 12:43
PROVIDERS: Family Medicine
DX: D72.829 Elevated white blood cell count, unspecified (principal); F03.90 Unspecified dementia, unspecified severity, without behavioral disturbance, psychotic disturbance, mood disturbance, and anxiety